=== PATIENT | male | born 1965 | race Hispanic/Latino ===

== ENCOUNTER 2018-06-08 19:44 | Inpatient (IN) | payer MEDICARE ==
[~2018-06-08] VITALS: Ht 170.2 cm; Wt 64.9 kg
[2018-06-08 20:39] LABS: BASOPHILS % (AUTO) 0.6 % (0.0-5.0); HEMATOCRIT 33.6 % (42-54); LYMPHOCYTES % (AUTO) 20.3 % (21.0-51.0); MEAN CORPUSCULAR HEMOGLOBIN 28.2 pg (27.0-33.0); MEAN CORPUSCULAR HGB CONC 33.8 g/dL (32.0-36.0); MEAN CORPUSCULAR VOLUME 83.2 fL (79-99); MONOCYTES % (AUTO) 8.3 % (3.0-13.0); NEUTROPHILS % (AUTO) 69.8 % (40.0-77.0); PLATELET COUNT (AUTO) 480 K/uL (130-400); RED BLOOD CELL COUNT(AUTO) 4.04 MIL/uL (4.50-6.20); WHITE BLOOD COUNT (AUTO) 12.6 K/uL (4.8-10.8)
[2018-06-08 20:55] LABS: CREATININE 1.5 mg/dL (0.5-1.5); POTASSIUM 3.8 mmol/L (3.5-5.1)
[2018-06-08 20:59] LABS: ALBUMIN 2.7 g/dL (3.5-5.0); BILIRUBIN,TOTAL 0.4 mg/dL (0.2-1.0); TOTAL PROTEIN, SERUM 8.6 g/dL (6.0-8.3)
[2018-06-09] MEDS: SODIUM CHLORIDE 0.9% 1000ML 1,000 ML IV SCH ×3 (00:04→20:39)
[2018-06-09] MEDS ORDERED: ZOSYN 3.375GM+NS 50ML 50 ML IV ONE (00:05)
[2018-06-09] MEDS ORDERED: SODIUM CHLORIDE 0.9% 50 ML IV ONE (00:05)
[2018-06-09] MEDS ORDERED: CLONIDINE HCL 0.1 MG TABLET ONE (00:06)
[2018-06-09] MEDS ORDERED: VANCOMYCIN 1GM+NS 250ML 250 ML IV SCH (00:15)
[2018-06-09] MEDS ORDERED: ACETAMINOPHEN 325 MG TAB PO PRN (00:15)
[2018-06-09] MEDS ORDERED: ONDANSETRON HCL MDV 20ML 2 MG/ML VIAL IV PRN (00:15)
[2018-06-09] MEDS ORDERED: MORPHINE SULFATE 2 MG/ML 1ML SYG IV PRN (00:15)
[2018-06-09] MEDS ORDERED: VANCOMYCIN 1GM+NS 250ML 250 ML IV ONE (00:27)
[2018-06-09] MEDS ORDERED: SODIUM CHLORIDE 0.9% 1000ML 1,000 ML IV ONE (02:31)
[2018-06-09 03:05] VITALS: BP 155/90
[2018-06-09] MEDS ORDERED: METF-446 PO (04:00)
[2018-06-09] MEDS ORDERED: ATOR20TA65 PO (04:00)
[2018-06-09] MEDS ORDERED: AMLO10TA6 PO (04:00)
[2018-06-09] MEDS ORDERED: INS7030 SQ (04:02)
[2018-06-09] MEDS ORDERED: HUM10VIA SQ (04:02)
[2018-06-09] MEDS ORDERED: DEXTROSE 50%-WATER 50 ML DISP.SYRIN IV PRN (05:45)
[2018-06-09] MEDS ORDERED: GLUCAGON 1MG KIT 1 MG ML IM PRN (05:45)
[2018-06-09] MEDS ORDERED: VANCOMYCIN PROTOCOL PER PHARMACY IV SCH (05:45)
[2018-06-09] MEDS: ZOSYN 3.375GM+NS 50ML 50 ML IV SCH ×3 (07:13→20:37)
[2018-06-09] MEDS: INSULIN HUMULIN R 100 UNIT/ML 3ML SQ SCH ×4 (07:21→20:37)
[2018-06-09] MEDS ORDERED: COMPOUND IV REFRIGERATED 1 EACH IVSOLN MISC PRN (07:45)
[2018-06-09 08:00] VITALS: BP 188/95
[2018-06-09 09:06] LABS: APPEARANCE,URINE Clear (CLEAR); BILIRUBIN,URINE Negative (NEGATIVE); COLOR,URINE Yellow (YELLOW); GLUCOSE, URINE (UA) >=1000 mg/dL (NEGATIVE); KETONES,URINE Negative (NEGATIVE); LEUKOCYTE ESTERASE ,URINE Negative (NEGATIVE); NITRATE,URINE Negative (NEGATIVE); OCCULT BLOOD,URINE Negative (NEGATIVE); PH,URINE 5.5 (5.0-8.0); PROTEIN,URINE Trace (NEGATIVE)
[2018-06-09 09:11] LABS: BACTERIA,URINE Rare /HPF (None Seen); RBC,URINE 0-1 /HPF (0-1); SQUAMOUS EPITHELIAL CELL,UR Rare /HPF (0-2); WBC,URINE 0-1 /HPF (0-1)
[2018-06-09] MEDS: VANCOMYCIN 750MG + NS 250 ML IV SCH ×4 (09:43→20:37)
[2018-06-09] MEDS: FAMOTIDINE 20MG TAB 20 MG TAB PO SCH ×2 (09:44→20:37)
[2018-06-09] MEDS: ENOXAPARIN SODIUM 30 MG/0.3 ML SQ SCH (09:44)
[2018-06-09] MEDS: AMLODIPINE BESYLATE 5 MG TAB PO SCH (09:44)
[2018-06-09] MEDS: ATORVASTATIN CALCIUM 20 MG TABLET PO SCH (09:44)
[2018-06-09 12:00] VITALS: BP 126/69
[2018-06-09 16:00] VITALS: BP 127/75
[2018-06-09] MEDS: INSULIN HUMULIN 70/30 100 UNIT/ML 3ML SQ SCH (16:30)
[2018-06-09] MEDS: METFORMIN HCL 500 MG TABLET PO SCH (16:58)
[2018-06-09 20:00] VITALS: BP 126/72
[2018-06-10] VITALS: BP 146/78
[2018-06-10 04:00] VITALS: BP 148/80
[2018-06-10] MEDS: ZOSYN 3.375GM+NS 50ML 50 ML IV SCH ×3 (04:54→20:51)
[2018-06-10] MEDS: INSULIN HUMULIN R 100 UNIT/ML 3ML SQ SCH ×4 (06:13→20:52)
[2018-06-10 07:30] VITALS: BP 152/74
[2018-06-10 08:14] LABS: HEMATOCRIT 30.4 % (42-54); MEAN CORPUSCULAR HEMOGLOBIN 27.8 pg (27.0-33.0); MEAN CORPUSCULAR HGB CONC 33.9 g/dL (32.0-36.0); PLATELET COUNT (AUTO) 399 K/uL (130-400); RED CELL DISTRIBUTION WIDTH 13.3 % (11.0-15.5); WHITE BLOOD COUNT (AUTO) 10.7 K/uL (4.8-10.8)
[2018-06-10] MEDS: ENOXAPARIN SODIUM 30 MG/0.3 ML SQ SCH (08:30)
[2018-06-10] MEDS: FAMOTIDINE 20MG TAB 20 MG TAB PO SCH ×2 (08:30→20:51)
[2018-06-10] MEDS: AMLODIPINE BESYLATE 5 MG TAB PO SCH (08:30)
[2018-06-10] MEDS: ATORVASTATIN CALCIUM 20 MG TABLET PO SCH (08:30)
[2018-06-10] MEDS: METFORMIN HCL 500 MG TABLET PO SCH ×2 (08:30→18:22)
[2018-06-10] MEDS: VANCOMYCIN 750MG + NS 250 ML IV SCH ×4 (08:31→20:51)
[2018-06-10 08:39] LABS: CREATININE 1.1 mg/dL (0.5-1.5); POTASSIUM 3.9 mmol/L (3.5-5.1)
[2018-06-10 11:00] VITALS: BP 133/76
[2018-06-10 16:00] VITALS: BP 124/74
[2018-06-10] MEDS: INSULIN HUMULIN 70/30 100 UNIT/ML 3ML SQ SCH (16:30)
[2018-06-10 20:00] VITALS: BP 140/73
[2018-06-11] VITALS: BP 127/71
[2018-06-11 04:05] VITALS: BP 128/71
[2018-06-11 05:07] LABS: HEMATOCRIT 30.5 % (42-54); MEAN CORPUSCULAR HGB CONC 33.8 g/dL (32.0-36.0); MEAN CORPUSCULAR VOLUME 82.9 fL (79-99); PLATELET COUNT (AUTO) 414 K/uL (130-400); RED BLOOD CELL COUNT(AUTO) 3.68 MIL/uL (4.50-6.20); RED CELL DISTRIBUTION WIDTH 13.4 % (11.0-15.5); WHITE BLOOD COUNT (AUTO) 8.5 K/uL (4.8-10.8)
[2018-06-11 05:17] LABS: CREATININE 1.1 mg/dL (0.5-1.5); POTASSIUM 3.5 mmol/L (3.5-5.1)
[2018-06-11] MEDS: ZOSYN 3.375GM+NS 50ML 50 ML IV SCH ×3 (05:27→20:15)
[2018-06-11] MEDS: INSULIN HUMULIN R 100 UNIT/ML 3ML SQ SCH ×4 (06:41→20:16)
[2018-06-11 07:24] VITALS: BP 120/70
[2018-06-11] MEDS: AMLODIPINE BESYLATE 5 MG TAB PO SCH (11:02)
[2018-06-11] MEDS: METFORMIN HCL 500 MG TABLET PO SCH ×2 (11:02→16:52)
[2018-06-11] MEDS: FAMOTIDINE 20MG TAB 20 MG TAB PO SCH ×2 (11:03→20:16)
[2018-06-11] MEDS: ATORVASTATIN CALCIUM 20 MG TABLET PO SCH (11:03)
[2018-06-11] MEDS: ENOXAPARIN SODIUM 30 MG/0.3 ML SQ SCH (11:03)
[2018-06-11] MEDS: VANCOMYCIN 750MG + NS 250 ML IV SCH ×4 (11:04→20:15)
[2018-06-11 11:50] VITALS: BP 183/88
[2018-06-11 15:44] VITALS: BP 125/72
[2018-06-11] MEDS: INSULIN HUMULIN 70/30 100 UNIT/ML 3ML SQ SCH (16:30)
[2018-06-11 20:00] VITALS: BP 150/82
[2018-06-12 00:05] VITALS: BP 131/53
[2018-06-12 04:36] VITALS: BP 139/71
[2018-06-12 04:49] LABS: BASOPHILS % (AUTO) 0.9 % (0.0-5.0); EOSINOPHILS % (AUTO) 2.9 % (0.0-8.0); LYMPHOCYTES % (AUTO) 27.9 % (21.0-51.0); MEAN CORPUSCULAR HEMOGLOBIN 27.6 pg (27.0-33.0); MEAN CORPUSCULAR HGB CONC 33.4 g/dL (32.0-36.0); MEAN CORPUSCULAR VOLUME 82.7 fL (79-99); MONOCYTES % (AUTO) 9.4 % (3.0-13.0); NEUTROPHILS % (AUTO) 58.9 % (40.0-77.0); NUCLEATED RED BLOOD CELLS 0.1 % (0.0-0.19); PLATELET COUNT (AUTO) 401 K/uL (130-400); RED BLOOD CELL COUNT(AUTO) 3.75 MIL/uL (4.50-6.20); RED CELL DISTRIBUTION WIDTH 13.4 % (11.0-15.5); WHITE BLOOD COUNT (AUTO) 9.3 K/uL (4.8-10.8)
[2018-06-12 05:07] LABS: CREATININE 1.5 mg/dL (0.5-1.5); POTASSIUM 3.6 mmol/L (3.5-5.1)
[2018-06-12] MEDS: ZOSYN 3.375GM+NS 50ML 50 ML IV SCH ×3 (05:52→20:35)
[2018-06-12] MEDS: INSULIN HUMULIN R 100 UNIT/ML 3ML SQ SCH ×4 (06:24→20:40)
[2018-06-12 07:30] VITALS: BP 153/81
[2018-06-12] MEDS: ENOXAPARIN SODIUM 30 MG/0.3 ML SQ SCH (09:22)
[2018-06-12] MEDS: ATORVASTATIN CALCIUM 20 MG TABLET PO SCH (09:22)
[2018-06-12] MEDS: AMLODIPINE BESYLATE 5 MG TAB PO SCH (09:22)
[2018-06-12] MEDS: FAMOTIDINE 20MG TAB 20 MG TAB PO SCH ×2 (09:22→20:34)
[2018-06-12] MEDS: METFORMIN HCL 500 MG TABLET PO SCH ×2 (09:22→17:08)
[2018-06-12] MEDS: VANCOMYCIN 750MG + NS 250 ML IV SCH ×4 (09:23→20:35)
[2018-06-12 11:00] VITALS: BP 146/85
[2018-06-12 16:00] VITALS: BP 143/94
[2018-06-12] MEDS: INSULIN HUMULIN 70/30 100 UNIT/ML 3ML SQ SCH (16:30)
[2018-06-12 19:00] VITALS: BP 142/82
[2018-06-13] VITALS (12 sets, daily range): BP systolic 123–166; BP diastolic 75–93
[2018-06-13] MEDS: ZOSYN 3.375GM+NS 50ML 50 ML IV SCH ×3 (04:41→21:04)
[2018-06-13] MEDS: INSULIN HUMULIN R 100 UNIT/ML 3ML SQ SCH ×4 (06:12→21:08)
[2018-06-13] MEDS: METFORMIN HCL 500 MG TABLET PO SCH ×2 (08:00→17:37)
[2018-06-13] MEDS ORDERED: BUPIVACAINE/PF 0.5% 30ML VIAL ONE (08:51)
[2018-06-13] MEDS ORDERED: LIDOCAINE HCL 1% 20 ML VIAL ONE (08:51)
[2018-06-13] MEDS: FAMOTIDINE 20MG TAB 20 MG TAB PO SCH ×2 (09:00→21:04)
[2018-06-13] MEDS: ENOXAPARIN SODIUM 30 MG/0.3 ML SQ SCH (09:00)
[2018-06-13] MEDS ORDERED: FENTANYL CITRATE PF 50 MCG/1 ML 2ML VIAL ONE (09:23)
[2018-06-13] MEDS ORDERED: MIDAZOLAM HCL 1 MG/ML 2ML VIAL ONE (09:23)
[2018-06-13] MEDS: AMLODIPINE BESYLATE 5 MG TAB PO SCH (14:50)
[2018-06-13] MEDS: ATORVASTATIN CALCIUM 20 MG TABLET PO SCH (14:50)
[2018-06-13] MEDS: INSULIN HUMULIN 70/30 100 UNIT/ML 3ML SQ SCH (16:30)
[2018-06-14] VITALS: BP 132/68
[2018-06-14 04:00] VITALS: BP 132/77
[2018-06-14] MEDS: ZOSYN 3.375GM+NS 50ML 50 ML IV SCH ×3 (04:47→20:13)
[2018-06-14 06:12] LABS: HEMATOCRIT 29.6 % (42-54); MEAN CORPUSCULAR HEMOGLOBIN 27.4 pg (27.0-33.0); MEAN CORPUSCULAR HGB CONC 33.2 g/dL (32.0-36.0); MEAN CORPUSCULAR VOLUME 82.4 fL (79-99); PLATELET COUNT (AUTO) 376 K/uL (130-400); RED BLOOD CELL COUNT(AUTO) 3.59 MIL/uL (4.50-6.20); RED CELL DISTRIBUTION WIDTH 13.4 % (11.0-15.5); WHITE BLOOD COUNT (AUTO) 9.9 K/uL (4.8-10.8)
[2018-06-14] MEDS: INSULIN HUMULIN R 100 UNIT/ML 3ML SQ SCH ×4 (06:18→20:55)
[2018-06-14 06:26] LABS: CREATININE 1.7 mg/dL (0.5-1.5); POTASSIUM 3.2 mmol/L (3.5-5.1)
[2018-06-14] MEDS ORDERED: LIDOCAINE HCL-MPF 1% 2ML VIAL IVP PRN (06:45)
[2018-06-14] MEDS ORDERED: POTASSIUM CHLORIDE 20 MEQ ERTAB PO PRN (06:45)
[2018-06-14] MEDS ORDERED: POTASSIUM CHLORIDE 10% ELIXIR 20 MEQ/15 ML UDCUP PO PRN (06:45)
[2018-06-14] MEDS ORDERED: POTASSIUM CHLORIDE 20MEQ/100ML 100 ML IV PRN (06:45)
[2018-06-14] MEDS ORDERED: POTASSIUM CHLORIDE 20 MEQ ERTAB PO ONE (06:47)
[2018-06-14 08:00] VITALS: BP 124/70
[2018-06-14] MEDS: AMLODIPINE BESYLATE 5 MG TAB PO SCH (08:32)
[2018-06-14] MEDS: FAMOTIDINE 20MG TAB 20 MG TAB PO SCH ×2 (08:32→20:12)
[2018-06-14] MEDS: ATORVASTATIN CALCIUM 20 MG TABLET PO SCH (08:32)
[2018-06-14] MEDS: METFORMIN HCL 500 MG TABLET PO SCH ×2 (08:32→16:57)
[2018-06-14] MEDS: ENOXAPARIN SODIUM 30 MG/0.3 ML SQ SCH (08:32)
[2018-06-14 12:00] VITALS: BP 149/88
[2018-06-14 16:00] VITALS: BP 124/71
[2018-06-14] MEDS: INSULIN HUMULIN 70/30 100 UNIT/ML 3ML SQ SCH (16:07)
[2018-06-14 19:00] VITALS: BP 129/70
[2018-06-14] MEDS: METOPROLOL TARTRATE 25 MG TAB PO SCH (20:12)
[2018-06-14] MEDS ORDERED: VANCOMYCIN 750MG + NS 250 ML IV SCH ×2 (20:30)
[2018-06-14] MEDS ORDERED: VANCOMYCIN 1GM+NS 250ML 250 ML IV SCH (21:00)
[2018-06-15] VITALS (7 sets, daily range): BP systolic 103–157; BP diastolic 59–86
[2018-06-15] MEDS: ZOSYN 3.375GM+NS 50ML 50 ML IV SCH ×3 (04:59→20:06)
[2018-06-15] MEDS: INSULIN HUMULIN R 100 UNIT/ML 3ML SQ SCH ×3 (05:58→21:00)
[2018-06-15 06:31] LABS: POTASSIUM 4.1 mmol/L (3.5-5.1)
[2018-06-15 06:47] LABS: MEAN CORPUSCULAR HEMOGLOBIN 27.1 pg (27.0-33.0); MEAN CORPUSCULAR HGB CONC 32.9 g/dL (32.0-36.0); MEAN CORPUSCULAR VOLUME 82.6 fL (79-99); PLATELET COUNT (AUTO) 344 K/uL (130-400); RED BLOOD CELL COUNT(AUTO) 3.88 MIL/uL (4.50-6.20); RED CELL DISTRIBUTION WIDTH 13.3 % (11.0-15.5); WHITE BLOOD COUNT (AUTO) 9.6 K/uL (4.8-10.8)
[2018-06-15] MEDS: METFORMIN HCL 500 MG TABLET PO SCH ×2 (07:58→17:00)
[2018-06-15] MEDS ORDERED: VANCOMYCIN 750MG + NS 250 ML IV SCH ×2 (09:00)
[2018-06-15] MEDS: ATORVASTATIN CALCIUM 20 MG TABLET PO SCH (09:09)
[2018-06-15] MEDS: AMLODIPINE BESYLATE 5 MG TAB PO SCH (09:10)
[2018-06-15] MEDS: METOPROLOL TARTRATE 25 MG TAB PO SCH ×2 (09:10→20:06)
[2018-06-15] MEDS: FAMOTIDINE 20MG TAB 20 MG TAB PO SCH ×2 (09:10→20:06)
[2018-06-15] MEDS: ENOXAPARIN SODIUM 30 MG/0.3 ML SQ SCH (09:11)
[2018-06-15] MEDS: INSULIN HUMULIN 70/30 100 UNIT/ML 3ML SQ SCH (16:30)
[2018-06-16 04:00] VITALS: BP 114/60
[2018-06-16] MEDS: VANCOMYCIN 500MG+NS 100ML 100 ML IV SCH ×2 (04:52→16:54)
[2018-06-16] MEDS: ZOSYN 3.375GM+NS 50ML 50 ML IV SCH ×3 (04:52→19:35)
[2018-06-16] MEDS: INSULIN HUMULIN R 100 UNIT/ML 3ML SQ SCH ×4 (06:20→20:18)
[2018-06-16 07:30] VITALS: BP 132/71
[2018-06-16] MEDS: FAMOTIDINE 20MG TAB 20 MG TAB PO SCH ×2 (08:23→19:35)
[2018-06-16] MEDS: METFORMIN HCL 500 MG TABLET PO SCH ×2 (08:23→16:54)
[2018-06-16] MEDS: AMLODIPINE BESYLATE 5 MG TAB PO SCH (08:24)
[2018-06-16] MEDS: ENOXAPARIN SODIUM 30 MG/0.3 ML SQ SCH (08:24)
[2018-06-16] MEDS: METOPROLOL TARTRATE 25 MG TAB PO SCH ×2 (08:25→19:35)
[2018-06-16 11:00] VITALS: BP 145/77
[2018-06-16 16:00] VITALS: BP 101/65
[2018-06-16] MEDS: INSULIN HUMULIN 70/30 100 UNIT/ML 3ML SQ SCH (16:30)
[2018-06-16 19:12] VITALS: BP 132/71
[2018-06-16] MEDS: ATORVASTATIN CALCIUM 20 MG TABLET PO SCH (19:35)
[2018-06-16] MEDS ORDERED: INSULIN HUMULIN R 100 UNIT/ML 3ML IV SCH (22:45)
[2018-06-16 23:33] VITALS: BP 113/65
[2018-06-17 03:12] VITALS: BP 116/66
[2018-06-17] MEDS: VANCOMYCIN 500MG+NS 100ML 100 ML IV SCH ×2 (04:31→18:22)
[2018-06-17] MEDS: ZOSYN 3.375GM+NS 50ML 50 ML IV SCH ×3 (04:31→20:20)
[2018-06-17] MEDS: INSULIN HUMULIN R 100 UNIT/ML 3ML SQ SCH ×4 (05:48→20:24)
[2018-06-17 06:23] LABS: BASOPHILS % (AUTO) 1.5 % (0.0-5.0); EOSINOPHILS % (AUTO) 5.5 % (0.0-8.0); HEMATOCRIT 29.5 % (42-54); LYMPHOCYTES % (AUTO) 29.2 % (21.0-51.0); MEAN CORPUSCULAR HEMOGLOBIN 28.1 pg (27.0-33.0); MEAN CORPUSCULAR HGB CONC 33.9 g/dL (32.0-36.0); MEAN CORPUSCULAR VOLUME 82.8 fL (79-99); NEUTROPHILS % (AUTO) 54.8 % (40.0-77.0); PLATELET COUNT (AUTO) 426 K/uL (130-400); RED BLOOD CELL COUNT(AUTO) 3.57 MIL/uL (4.50-6.20); RED CELL DISTRIBUTION WIDTH 13.4 % (11.0-15.5)
[2018-06-17 06:31] LABS: CREATININE 1.9 mg/dL (0.5-1.5); POTASSIUM 3.8 mmol/L (3.5-5.1)
[2018-06-17 07:30] VITALS: BP 108/63
[2018-06-17] MEDS: METOPROLOL TARTRATE 25 MG TAB PO SCH ×2 (09:13→20:19)
[2018-06-17] MEDS: METFORMIN HCL 500 MG TABLET PO SCH ×2 (09:13→17:25)
[2018-06-17] MEDS: AMLODIPINE BESYLATE 5 MG TAB PO SCH (09:13)
[2018-06-17] MEDS: FAMOTIDINE 20MG TAB 20 MG TAB PO SCH ×2 (09:13→20:20)
[2018-06-17] MEDS: ENOXAPARIN SODIUM 30 MG/0.3 ML SQ SCH (09:14)
[2018-06-17 11:00] VITALS: BP 136/83
[2018-06-17 16:00] VITALS: BP 120/62
[2018-06-17] MEDS: INSULIN HUMULIN 70/30 100 UNIT/ML 3ML SQ SCH (16:30)
[2018-06-17 20:00] VITALS: BP 131/67
[2018-06-17] MEDS: ATORVASTATIN CALCIUM 20 MG TABLET PO SCH (20:20)
[2018-06-17 23:51] VITALS: BP 123/64
[2018-06-18 04:00] VITALS: BP 130/68
[2018-06-18] MEDS: VANCOMYCIN 500MG+NS 100ML 100 ML IV SCH (05:19)
[2018-06-18] MEDS: ZOSYN 3.375GM+NS 50ML 50 ML IV SCH ×2 (05:19→13:19)
[2018-06-18] MEDS: INSULIN HUMULIN R 100 UNIT/ML 3ML SQ SCH ×3 (06:53→16:30)
[2018-06-18 08:15] VITALS: BP 144/79
[2018-06-18] MEDS: AMLODIPINE BESYLATE 5 MG TAB PO SCH (08:16)
[2018-06-18] MEDS: METOPROLOL TARTRATE 25 MG TAB PO SCH (08:18)
[2018-06-18] MEDS: METFORMIN HCL 500 MG TABLET PO SCH ×2 (08:18→16:48)
[2018-06-18] MEDS: FAMOTIDINE 20MG TAB 20 MG TAB PO SCH (08:18)
[2018-06-18] MEDS: ENOXAPARIN SODIUM 30 MG/0.3 ML SQ SCH (08:24)
[2018-06-18 12:05] VITALS: BP 140/72
[2018-06-18 16:00] VITALS: BP 130/69
[2018-06-18] MEDS: INSULIN HUMULIN 70/30 100 UNIT/ML 3ML SQ SCH (16:30)
== END 2018-06-18 18:40 | DRG 617 ==
LOC: EDH 19:44 → EDHIP 22:35 → OBSVTOIN 22:35 → 3DH 06-09 02:21
PROVIDERS: ADMIT Internal Medicine; ATTEND Internal Medicine
PROC: 3E02340 Introduction of Influenza Vaccine into Muscle, Percutaneous Approach (ICD-10-PCS; 2018-06-09)
PROC: 0QBR0ZZ Excision of Left Toe Phalanx, Open Approach (ICD-10-PCS; 2018-06-10)
PROC: 0Y6N0Z9 Detachment at Left Foot, Partial 1st Ray, Open Approach (ICD-10-PCS; principal; 2018-06-13 09:22)
DX: E11.69 Type 2 diabetes mellitus with other specified complication (principal); E87.1 Hypo-osmolality and hyponatremia; M86.8X7 Other osteomyelitis, ankle and foot; L03.115 Cellulitis of right lower limb; S90.425A Blister (nonthermal), left lesser toe(s), initial encounter; L97.529 Non-pressure chronic ulcer of other part of left foot with unspecified severity; E11.621 Type 2 diabetes mellitus with foot ulcer; E87.6 Hypokalemia; E11.65 Type 2 diabetes mellitus with hyperglycemia; E78.5 Hyperlipidemia, unspecified; I10 Essential (primary) hypertension; L03.032 Cellulitis of left toe; B95.62 Methicillin resistant Staphylococcus aureus infection as the cause of diseases classified elsewhere; B95.2 Enterococcus as the cause of diseases classified elsewhere; B95.61 Methicillin susceptible Staphylococcus aureus infection as the cause of diseases classified elsewhere; B96.4 Proteus (mirabilis) (morganii) as the cause of diseases classified elsewhere; X58.XXXA Exposure to other specified factors, initial encounter; Y93.89 Activity, other specified; Y92.89 Other specified places as the place of occurrence of the external cause; Y99.8 Other external cause status; Z79.4 Long term (current) use of insulin
CPT/HCPCS: 36415; 71045; 73630; 73700; 73718; 80048; 80053; 80202; 81001; 82948; 84484; 85025; 85027; 87040; 87070; 87076; 87077; 87186; 87205; 88305; 88311; 93005; 93923; 93925; 97039; G0008; G0378; J1650; J1815; J2250; J2543; J3010; J3370; J3490; J7030; Q2035

== ENCOUNTER 2019-11-23 20:40 | Inpatient (IN) | payer MEDICARE ==
[~2019-11-23] VITALS: Ht 165.1 cm; Wt 72.6 kg
[~2019-11-23 20:40] MED LIST: AMLO-258 PO; ATOR20TA65 PO; HUM10VIA SQ; INS7030 SQ; METF-446 PO
[2019-11-23 21:23] LABS: BASOPHILS % (AUTO) 0.4 % (0.0-5.0); EOSINOPHILS % (AUTO) 0.2 % (0.0-8.0); HEMATOCRIT 27.3 % (42-54); LYMPHOCYTES % (AUTO) 3.1 % (21.0-51.0); MEAN CORPUSCULAR HEMOGLOBIN 26.7 pg (27.0-33.0); MEAN CORPUSCULAR HGB CONC 34.1 g/dL (32.0-36.0); MEAN CORPUSCULAR VOLUME 78.4 fL (79-99); MONOCYTES % (AUTO) 2.7 % (3.0-13.0); NEUTROPHILS % (AUTO) 87.4 % (40.0-77.0); PLATELET COUNT (AUTO) 375 K/uL (130-400); RED BLOOD CELL COUNT(AUTO) 3.48 MIL/uL (4.50-6.20); RED CELL DISTRIBUTION WIDTH 12.5 % (11.0-15.5); WHITE BLOOD COUNT (AUTO) 26.5 K/uL (4.8-10.8)
[2019-11-23 21:33] LABS: CREATININE 2.6 mg/dL (0.5-1.5); POTASSIUM 3.1 mmol/L (3.5-5.1)
[2019-11-23 22:00] LABS: BAND NEUTROPHILS % (MANUAL) 19 % (0-2); LYMPHOCYTES % (MANUAL) 2 % (22-44); MAN.DIFF COMMENT-IMPRESSION MANUAL DIFFERENTIAL; MONOCYTES % (MANUAL) 3 % (2-9); SEGMENTED NEUTROPHILS % 76 % (40-70)
[2019-11-23] MEDS ORDERED: VANCOMYCIN 1GM+NS 250ML 250 ML IV ONE (22:34)
[2019-11-23] MEDS ORDERED: ZOSYN 3.375GM+NS 50ML 50 ML IV ONE (22:34)
[2019-11-23 22:57] LABS: APPEARANCE,URINE Cloudy (CLEAR); BILIRUBIN,URINE Small (NEGATIVE); COLOR,URINE Dark Yellow (YELLOW); GLUCOSE, URINE (UA) TRACE mg/dL (NEGATIVE); KETONES,URINE Trace mg/dL (NEGATIVE); LEUKOCYTE ESTERASE ,URINE Negative (NEGATIVE); NITRATE,URINE Negative (NEGATIVE); OCCULT BLOOD,URINE Negative (NEGATIVE); PROTEIN,URINE POS 2+ mg/dL (NEGATIVE)
[2019-11-23] MEDS ORDERED: ACETAMINOPHEN 325 MG TAB PO PRN (23:15)
[2019-11-23] MEDS ORDERED: GLUCAGON 1MG KIT 1 MG ML IM PRN (23:15)
[2019-11-23] MEDS ORDERED: ONDANSETRON HCL 4 MG/2 ML VIAL IV PRN (23:15)
[2019-11-23] MEDS ORDERED: DEXTROSE 50%-WATER 50 ML DISP.SYRIN IV PRN (23:15)
[2019-11-23 23:21] LABS: AMORPHOUS SEDIMENT,UR Few /LPF (None Seen); BACTERIA,URINE None Seen /HPF (None Seen); RBC,URINE 0-1 /HPF (0-1); SQUAMOUS EPITHELIAL CELL,UR Rare /HPF (0-2); WBC,URINE 0-1 /HPF (0-1)
[2019-11-23] MEDS ORDERED: SODIUM CHLORIDE 0.9% 1000ML 2,000 ML IV ONE (23:23)
[2019-11-23] MEDS: ZOSYN 3.375GM+NS 50ML 50 ML IV SCH (23:30)
[2019-11-23] MEDS ORDERED: VANCOMYCIN PROTOCOL PER PHARMACY IV SCH (23:30)
[2019-11-23] MEDS ORDERED: KETOROLAC TROMETHAMINE 15MG/ML IV PRN (23:30)
[2019-11-24] MEDS ORDERED: PHARMACY COMMUNICATION MISC SCH ×2 (01:00→08:15)
[2019-11-24] MEDS: LACTATED RINGERS 1000ML 1,000 ML IV SCH ×2 (03:30→11:05)
[2019-11-24 04:00] VITALS: BP 152/80
[2019-11-24 04:11] LABS: BASOPHILS % (AUTO) 0.3 % (0.0-5.0); HEMATOCRIT 24.5 % (42-54); LYMPHOCYTES % (AUTO) 4.5 % (21.0-51.0); MEAN CORPUSCULAR HEMOGLOBIN 26.8 pg (27.0-33.0); MEAN CORPUSCULAR HGB CONC 33.9 g/dL (32.0-36.0); MONOCYTES % (AUTO) 5.6 % (3.0-13.0); PLATELET COUNT (AUTO) 355 K/uL (130-400); RED CELL DISTRIBUTION WIDTH 12.5 % (11.0-15.5); WHITE BLOOD COUNT (AUTO) 28.4 K/uL (4.8-10.8)
[2019-11-24 04:17] LABS: ALBUMIN 1.7 g/dL (3.5-5.0); BILIRUBIN,TOTAL 0.7 mg/dL (0.2-1.0); CREATININE 2.3 mg/dL (0.5-1.5); MAGNESIUM 1.6 mg/dL (1.80-2.40); POTASSIUM 3.6 mmol/L (3.5-5.1); TOTAL PROTEIN, SERUM 6.1 g/dL (6.0-8.3)
[2019-11-24 04:18] LABS: INR 1.12 (0.85-1.15); PARTIAL THROMBOPLASTIN TIME 34.5 SEC (26.3-35.5)
--- NOTE | 2019-11-24 04:47 | NUR ---
zoysn administered in er at 2100 hours.
--- NOTE | 2019-11-24 07:00 | NUR ---
[facility] down assessment and data base written in correct papers. Please refer to paper charting.
[2019-11-24] MEDS: ZOSYN 3.375GM+NS 50ML 50 ML IV SCH (07:18)
[2019-11-24] MEDS: INSULIN HUMULIN R 100 UNIT/ML 3ML SQ SCH ×4 (07:50→21:00)
[2019-11-24 08:01] VITALS: BP 160/76
--- NOTE | 2019-11-24 08:08 | NUR ---
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 PENDING DR HARPAL WONG TO MAKE AWARRE
[2019-11-24] MEDS: FAMOTIDINE/PF 20 MG/2 ML VIAL IV SCH ×2 (09:04→22:35)
[2019-11-24] MEDS ORDERED: MAGNESIUM 2GM PREMIX 50ML 50 ML IV ONE (09:53)
[2019-11-24 11:29] VITALS: BP 115/61
[2019-11-24 12:10] LABS: AMPHET/METH SCREEN,URINE NEGATIVE (NEGATIVE); BARBITURATE SCREEN, URINE NEGATIVE (NEGATIVE); BENZODIAZEPINES SCREEN,URINE NEGATIVE (NEGATIVE); CANNABINOID SCREEN,URINE NEGATIVE (NEGATIVE); COCAINE SCREEN,URINE NEGATIVE (NEGATIVE); CREATININE,URINE RANDOM 272 mg/dL (30-135); OPIATE SCREEN,URINE NEGATIVE (NEGATIVE); PHENCYCLIDINE SCREEN,URINE NEGATIVE (NEGATIVE); PROTEIN,URINE RANDOM 144.4 mg/dL (0-11.9)
[2019-11-24] MEDS ORDERED: COMPOUND IV REFRIGERATED 1 EACH IVSOLN MISC PRN (13:15)
[2019-11-24] MEDS ORDERED: VANCOMYCIN 1.5 GM in SODIUM CHLORIDE 0.9% 250 ML IV ONE (14:00)
--- NOTE | 2019-11-24 14:13 | NUR ---
CM NOTE/IA MEET WITH PATIENT IN ROOM. PER PATIENT, LIVES PRIMARY ALONE SINCE SPOUSE AND HIM ARE BUT SPOUSE STAYS WITH HIM FROM TIME TO TIME, NO HOME HEALTH OR PROVIDER SERVICES IN USE, INDEPENDENT WITH ADLS, BROTHER DRIVES, NO DME IN USE AND FEELS SAFE TO RETURN HOME. Addendum: 11/25/19 at 1415 by JEANINE VALVERDE RN CM Amended: Links added.
[2019-11-24] MEDS: CEFEPIME HCL 1 GM VIAL IVP SCH (14:53)
[2019-11-24] MEDS: ASPIRIN 81MG TAB.CHEW PO SCH (16:19)
[2019-11-24 16:22] VITALS: BP 160/76
[2019-11-24 20:00] VITALS: BP 132/78
[2019-11-24] MEDS: ATORVASTATIN CALCIUM 40 MG TABLET PO SCH (22:35)
[2019-11-24 23:39] VITALS: BP 158/82
[2019-11-25] VITALS (25 sets, daily range): BP systolic 120–199; BP diastolic 48–96
[2019-11-25] MEDS: CEFEPIME HCL 1 GM VIAL IVP SCH ×2 (00:25→12:26)
[2019-11-25] MEDS: LACTATED RINGERS 1000ML 1,000 ML IV SCH ×2 (00:29→14:15)
[2019-11-25 05:01] LABS: CREATININE 1.5 mg/dL (0.5-1.5); PHOSPHORUS 2.8 mg/dL (2.5-4.9)
[2019-11-25 05:08] LABS: HEMATOCRIT 23.7 % (42-54); MEAN CORPUSCULAR HEMOGLOBIN 26.8 pg (27.0-33.0); MEAN CORPUSCULAR HGB CONC 34.2 g/dL (32.0-36.0); MEAN CORPUSCULAR VOLUME 78.5 fL (79-99); PLATELET COUNT (AUTO) 386 K/uL (130-400); RED BLOOD CELL COUNT(AUTO) 3.02 MIL/uL (4.50-6.20); RED CELL DISTRIBUTION WIDTH 12.4 % (11.0-15.5); WHITE BLOOD COUNT (AUTO) 20.9 K/uL (4.8-10.8)
[2019-11-25 05:09] LABS: % IRON SATURATION 8.1 % (30-44)
--- NOTE | 2019-11-25 05:34 | NUR ---
potassium: 3.0 Reported to on-call hospitalist with an order to give Potassium 20 MEQ IV x 1 dose only.
[2019-11-25] MEDS ORDERED: LIDOCAINE HCL 1% 20 ML VIAL IV SCH (05:45)
[2019-11-25] MEDS ORDERED: POTASSIUM CHLORIDE 20 MEQ/100 ML BAG IV SCH (05:45)
[2019-11-25] MEDS: INSULIN HUMULIN R 100 UNIT/ML 3ML SQ SCH ×4 (05:51→21:00)
[2019-11-25] MEDS: POTASSIUM CHLORIDE 10MEQ/100ML 100 ML IV SCH ×2 (06:19→17:05)
[2019-11-25] MEDS: LIDOCAINE HCL-MPF 1% 2ML VIAL IV SCH ×2 (06:20→17:04)
[2019-11-25 06:26] LABS: BAND NEUTROPHILS % (MANUAL) 15 % (0-2); EOSINOPHILS % (MANUAL) 3 % (1-6); LYMPHOCYTES % (MANUAL) 10 % (22-44); MAN.DIFF COMMENT-IMPRESSION MANUAL DIFFERENTIAL; METAMYELOCYTES % 1 % (0-0); MONOCYTES % (MANUAL) 5 % (2-9); REACTIVE LYMPHOCYTES 2 % (0-0); SEGMENTED NEUTROPHILS % 64 % (40-70)
[2019-11-25 06:27] LABS: PLATELET MORPHOLOGY COMMENT ADEQUATE
--- NOTE | 2019-11-25 08:20 | NUR ---
TO SURGERY PATIENT HAS BEEN TRANSFERRED TO OR HOLDING AREA IN STABLE CONDITION. DR. DOMINGO WAS IN TO SEE PATIENT AND DISCUSS SURGERY OPTIONS.
[2019-11-25] MEDS: ASPIRIN 81MG TAB.CHEW PO SCH (08:34)
[2019-11-25] MEDS: FAMOTIDINE/PF 20 MG/2 ML VIAL IV SCH ×2 (08:34→21:01)
[2019-11-25] MEDS ORDERED: MIDAZOLAM HCL 1 MG/ML 2ML VIAL ONE (08:36)
[2019-11-25] MEDS ORDERED: KETAMINE 50MG/ML SYRINGE 50 MG/ML DISP.SYRIN IV ONE ×2 (08:37→08:49)
[2019-11-25] MEDS ORDERED: PROPOFOL 1000 MG/100 ML 0 ML IV ONE (08:46)
[2019-11-25] MEDS ORDERED: PROPOFOL 1000 MG/100 ML 100 ML IV ONE (08:48)
[2019-11-25] MEDS ORDERED: PROPOFOL 10 MG/ML 20ML VIAL IV ONE (09:01)
[2019-11-25] MEDS ORDERED: COMPOUND IV MISC 1 EACH IVSOLN MISC PRN (09:45)
--- NOTE | 2019-11-25 10:52 | NUR ---
1042 BPCI Letter given to patient.
--- NOTE | 2019-11-25 11:15 | NUR ---
POST SURGERY RETURNED TO ROOM FROM PACU VIA HOSPITAL BED IN STABLE CONDITION. DRESSING TO LEFT AKA IS DRY AND INTACT. HE IS AWAKE AND ALERT WITH NO C/O PAIN. POST OP V/S INITIATED. REORIENTED TO ROOM AND USE OF CALL LIGHT. WILL CONTINUE TO MONITOR.
[2019-11-25] MEDS: IRON SUCROSE COMPLEX 100 MG in SODIUM CHLORIDE 0.9% 50 ML IV SCH (12:01)
[2019-11-25] MEDS ORDERED: VANCOMYCIN 1GM+NS 250ML 250 ML IV SCH (14:00)
[2019-11-25] MEDS ORDERED: AMLODIPINE BESYLATE 5 MG TAB PO SCH (17:30)
[2019-11-25] MEDS ORDERED: HYDRALAZINE HCL 20 MG/ML VIAL IM PRN (18:30)
--- NOTE | 2019-11-25 19:45 | NUR ---
WOUND LEFT STUMP DRESSING LEFT STUMP OFF, PATIENT STATES DOESNT KNOW how it came off, wound with dehisence , observe 5 maikol off, minimal sero sanguinous drainage, called dr. shrestha informed of wound dehisence with oreders, cleansed wound with saline dab dry, apply x5 steri strips over open wound, apply xerform, 4x4, kerlix roll with elastoblast secured with hypafix to skin as ordered by dr. shrestha
[2019-11-25] MEDS: ATORVASTATIN CALCIUM 40 MG TABLET PO SCH (21:01)
[2019-11-25] MEDS ORDERED: MORPHINE SULFATE 4 MG/1ML SYG ONE (21:34)
[2019-11-25] MEDS: MORPHINE SULFATE 4 MG/1ML SYG IVP PRN (22:06)
[2019-11-26] VITALS (7 sets, daily range): BP systolic 140–191; BP diastolic 74–92
[2019-11-26] MEDS: CEFEPIME HCL 1 GM VIAL IVP SCH (00:35)
[2019-11-26] MEDS: VANCOMYCIN 0.75 GM in SODIUM CHLORIDE 0.9% 250 ML IV SCH ×2 (00:36→15:23)
[2019-11-26] MEDS: LACTATED RINGERS 1000ML 1,000 ML IV SCH ×2 (04:03→20:44)
[2019-11-26 04:18] LABS: HEMATOCRIT 24.5 % (42-54); MEAN CORPUSCULAR HEMOGLOBIN 26.3 pg (27.0-33.0); MEAN CORPUSCULAR HGB CONC 33.9 g/dL (32.0-36.0); MEAN CORPUSCULAR VOLUME 77.8 fL (79-99); RED BLOOD CELL COUNT(AUTO) 3.15 MIL/uL (4.50-6.20); RED CELL DISTRIBUTION WIDTH 12.5 % (11.0-15.5)
[2019-11-26 04:39] LABS: POTASSIUM 3.3 mmol/L (3.5-5.1)
[2019-11-26] MEDS: INSULIN HUMULIN R 100 UNIT/ML 3ML SQ SCH ×4 (05:26→20:44)
[2019-11-26] MEDS: ASPIRIN 81MG TAB.CHEW PO SCH (09:34)
[2019-11-26] MEDS: FAMOTIDINE/PF 20 MG/2 ML VIAL IV SCH ×2 (09:34→20:44)
[2019-11-26] MEDS: AMLODIPINE BESYLATE 5 MG TAB PO SCH (09:35)
[2019-11-26] MEDS: IRON SUCROSE COMPLEX 100 MG in SODIUM CHLORIDE 0.9% 50 ML IV SCH (10:59)
[2019-11-26] MEDS: LEVOFLOXACIN 750 MG TABLET PO SCH (15:23)
--- NOTE | 2019-11-26 18:25 | NUR ---
DISCHARGE PLANNING TO [facility]- SABINA SCREENING PENDING SPOKE TO PATIENT ABOUT PLACEMENT YESTERDAY AFTER SURGERY- DECIDED ON [facility]. ADVISED SON THALIA BOOKER JR THIS AM [phone] AND HE ALSO AGREED WITH THIS PLACEMENT. PATIENT WILL ALSO NEED ORDER FOR WHEELCHAIR PRIOR TO DISCHARGE. CM TO FOLLOW UP SPOKE WITH ANTONELLA FOR [facility] AND SHE STATES THAT SHE WILL BE IN EARLY FRIDAY TO SWAB PATIENT. ADVISED HER THAT I DID NOT HAVE PT NOTES YET BECUSE THERE WAS A SMALL DEHISCENC EOF THE WOUND AND WE WILL WAIT FOR SURGEON FOR PT ORDERS. WILL SEND CM REFERRAL - FACE SHEET AND MD ORDER TO START PROCESS, REST OF PKT PENDING, Addendum: 11/26/19 at 1831 by FORREST SHIELDS RN CM Amended: Links added.
--- NOTE | 2019-11-26 18:32 | NUR ---
SPOKE TO PATIENT ABOUT PLACEMENT YESTERDAY AFTER SURGERY- DECIDED ON [facility]. ADVISED SON ANNA DEVRIES * THIS AM [phone] AND HE ALSO AGREED WITH THIS PLACEMENT.
[2019-11-26] MEDS: ATORVASTATIN CALCIUM 40 MG TABLET PO SCH (20:44)
[2019-11-26] MEDS: MORPHINE SULFATE 4 MG/1ML SYG IVP PRN (21:03)
[2019-11-26] MEDS ORDERED: LIDOCAINE HCL-MPF 1% 2ML VIAL IV PRN (21:15)
[2019-11-26] MEDS ORDERED: HYDRALAZINE HCL 20 MG/ML VIAL IV PRN (23:30)
[2019-11-27] MEDS: VANCOMYCIN 0.75 GM in SODIUM CHLORIDE 0.9% 250 ML IV SCH (01:24)
[2019-11-27 04:00] VITALS: BP 153/78
[2019-11-27 05:49] LABS: CREATININE 0.9 mg/dL (0.5-1.5); MAGNESIUM 1.2 mg/dL (1.80-2.40)
[2019-11-27 06:04] LABS: POTASSIUM 2.8 mmol/L (3.5-5.1)
[2019-11-27] MEDS: LACTATED RINGERS 1000ML 1,000 ML IV SCH ×2 (06:16→16:39)
[2019-11-27] MEDS: INSULIN HUMULIN R 100 UNIT/ML 3ML SQ SCH ×4 (06:16→20:55)
[2019-11-27] MEDS: MAGNESIUM 2GM PREMIX 50ML 50 ML IV PRN ×2 (06:22→10:54)
[2019-11-27] MEDS ORDERED: POTASSIUM CHLORIDE 20 MEQ ERTAB PO SCH ×2 (07:15→09:00)
[2019-11-27] MEDS ORDERED: POTASSIUM CHLORIDE 20MEQ/100ML 100 ML IV PRN (07:15)
[2019-11-27] MEDS ORDERED: POTASSIUM CHLORIDE 10% ELIXIR 20 MEQ/15 ML UDCUP PO PRN (07:15)
[2019-11-27] MEDS ORDERED: LIDOCAINE HCL-MPF 1% 2ML VIAL IV PRN (07:15)
[2019-11-27] MEDS ORDERED: POTASSIUM CHLORIDE 20 MEQ ERTAB PO ONE (07:17)
[2019-11-27 08:00] VITALS: BP 188/92
[2019-11-27] MEDS: ASPIRIN 81MG TAB.CHEW PO SCH (08:53)
[2019-11-27] MEDS: HYDRALAZINE HCL 25 MG TABLET PO SCH ×2 (08:53→20:43)
[2019-11-27] MEDS: AMLODIPINE BESYLATE 5 MG TAB PO SCH (08:55)
[2019-11-27] MEDS: FAMOTIDINE/PF 20 MG/2 ML VIAL IV SCH ×2 (08:55→20:42)
[2019-11-27] MEDS: LEVOFLOXACIN 750 MG TABLET PO SCH (10:54)
[2019-11-27] MEDS: IRON SUCROSE COMPLEX 100 MG in SODIUM CHLORIDE 0.9% 50 ML IV SCH (10:54)
[2019-11-27 12:00] VITALS: BP 160/82
[2019-11-27] MEDS ORDERED: LISINOPRIL 20 MG TABLET PO SCH (13:30)
[2019-11-27 14:53] LABS: MAGNESIUM 2.3 mg/dL (1.80-2.40); POTASSIUM 3.2 mmol/L (3.5-5.1)
[2019-11-27 16:00] VITALS: BP 161/80
[2019-11-27] MEDS: CEFTRIAXONE SODIUM 2 GM VIAL IVP SCH (16:38)
[2019-11-27] MEDS ORDERED: LISINOPRIL 20 MG TABLET ONE (16:41)
[2019-11-27] MEDS: POTASSIUM CHLORIDE 20 MEQ ERTAB PO PRN ×3 (16:54→22:55)
[2019-11-27 19:40] VITALS: BP 149/80
[2019-11-27] MEDS: ATORVASTATIN CALCIUM 40 MG TABLET PO SCH (20:42)
[2019-11-27] MEDS: ACETAMINOPHEN-CODEINE 300/30MG TAB PO PRN (20:44)
[2019-11-27 23:37] VITALS: BP 142/68
[2019-11-28 03:42] VITALS: BP 146/73
[2019-11-28] MEDS: INSULIN HUMULIN R 100 UNIT/ML 3ML SQ SCH ×4 (05:56→21:00)
[2019-11-28 06:00] LABS: BASOPHILS % (AUTO) 0.5 % (0.0-5.0); EOSINOPHILS % (AUTO) 2.4 % (0.0-8.0); HEMATOCRIT 24.4 % (42-54); LYMPHOCYTES % (AUTO) 14.6 % (21.0-51.0); MEAN CORPUSCULAR HEMOGLOBIN 26.7 pg (27.0-33.0); MEAN CORPUSCULAR VOLUME 78.5 fL (79-99); MONOCYTES % (AUTO) 9.2 % (3.0-13.0); NEUTROPHILS % (AUTO) 63.9 % (40.0-77.0); PLATELET COUNT (AUTO) 490 K/uL (130-400); RED BLOOD CELL COUNT(AUTO) 3.11 MIL/uL (4.50-6.20); RED CELL DISTRIBUTION WIDTH 13.2 % (11.0-15.5); WHITE BLOOD COUNT (AUTO) 14.8 K/uL (4.8-10.8)
[2019-11-28 06:16] LABS: CREATININE 1.1 mg/dL (0.5-1.5); MAGNESIUM 1.8 mg/dL (1.80-2.40)
[2019-11-28] MEDS: MAGNESIUM 2GM PREMIX 50ML 50 ML IV PRN (07:15)
[2019-11-28 07:57] VITALS: BP 163/82
[2019-11-28] MEDS: LISINOPRIL 40 MG TABLET PO SCH (09:11)
[2019-11-28] MEDS: ASPIRIN 81MG TAB.CHEW PO SCH (09:11)
[2019-11-28] MEDS: FAMOTIDINE/PF 20 MG/2 ML VIAL IV SCH ×2 (09:11→21:16)
[2019-11-28] MEDS: AMLODIPINE BESYLATE 5 MG TAB PO SCH (09:11)
[2019-11-28] MEDS: HYDRALAZINE HCL 25 MG TABLET PO SCH ×2 (09:11→21:16)
[2019-11-28] MEDS: IRON SUCROSE COMPLEX 100 MG in SODIUM CHLORIDE 0.9% 50 ML IV SCH (09:12)
[2019-11-28 12:00] VITALS: BP 144/74
[2019-11-28] MEDS: CEFTRIAXONE SODIUM 2 GM VIAL IVP SCH (15:46)
[2019-11-28] MEDS: LACTATED RINGERS 1000ML 1,000 ML IV SCH ×2 (15:47→22:41)
[2019-11-28 16:00] VITALS: BP 132/72
[2019-11-28 20:00] VITALS: BP 132/72
[2019-11-28] MEDS: ATORVASTATIN CALCIUM 40 MG TABLET PO SCH (21:16)
[2019-11-28] MEDS: ACETAMINOPHEN-CODEINE 300/30MG TAB PO PRN (21:17)
[2019-11-29] VITALS (7 sets, daily range): BP systolic 124–161; BP diastolic 66–81
[2019-11-29] MEDS: INSULIN HUMULIN R 100 UNIT/ML 3ML SQ SCH ×4 (05:54→20:26)
[2019-11-29] MEDS: LISINOPRIL 40 MG TABLET PO SCH (08:19)
[2019-11-29] MEDS: FAMOTIDINE/PF 20 MG/2 ML VIAL IV SCH ×2 (08:19→20:24)
[2019-11-29] MEDS: ASPIRIN 81MG TAB.CHEW PO SCH (08:19)
[2019-11-29] MEDS: IRON SUCROSE COMPLEX 100 MG in SODIUM CHLORIDE 0.9% 50 ML IV SCH (08:19)
[2019-11-29] MEDS: AMLODIPINE BESYLATE 5 MG TAB PO SCH (08:19)
[2019-11-29] MEDS: HYDRALAZINE HCL 25 MG TABLET PO SCH ×2 (08:23→20:24)
[2019-11-29] MEDS: LACTATED RINGERS 1000ML 1,000 ML IV SCH (11:10)
[2019-11-29] MEDS: CEFTRIAXONE SODIUM 2 GM VIAL IVP SCH (13:37)
[2019-11-29] MEDS ORDERED: INSULIN HUMULIN 70/30 100 UNIT/ML 3ML SQ SCH (16:30)
[2019-11-29] MEDS: METFORMIN HCL 500 MG TABLET PO SCH (16:33)
[2019-11-29] MEDS: ATORVASTATIN CALCIUM 40 MG TABLET PO SCH (20:23)
[2019-11-29] MEDS: HYDROMORPHONE 1 MG/1 ML AMP IVP PRN (20:35)
[2019-11-30] MEDS: HYDROMORPHONE 1 MG/1 ML AMP IVP PRN ×3 (00:09→04:25)
[2019-11-30] MEDS: MORPHINE SULFATE 4 MG/1ML SYG IVP PRN ×2 (00:54→03:14)
[2019-11-30] MEDS: LACTATED RINGERS 1000ML 1,000 ML IV SCH (03:01)
[2019-11-30 03:32] VITALS: BP 120/62
[2019-11-30] MEDS: INSULIN HUMULIN R 100 UNIT/ML 3ML SQ SCH ×2 (05:49→11:38)
[2019-11-30] MEDS ORDERED: INSULIN HUMULIN 70/30 100 UNIT/ML 3ML SQ SCH (07:30)
[2019-11-30] MEDS: FAMOTIDINE/PF 20 MG/2 ML VIAL IV SCH (08:08)
[2019-11-30] MEDS: AMLODIPINE BESYLATE 5 MG TAB PO SCH (08:08)
[2019-11-30] MEDS: METFORMIN HCL 500 MG TABLET PO SCH (08:08)
[2019-11-30] MEDS: LISINOPRIL 40 MG TABLET PO SCH (08:08)
[2019-11-30] MEDS: HYDRALAZINE HCL 25 MG TABLET PO SCH (08:08)
[2019-11-30] MEDS: ASPIRIN 81MG TAB.CHEW PO SCH (08:09)
[2019-11-30] MEDS: IRON SUCROSE COMPLEX 100 MG in SODIUM CHLORIDE 0.9% 50 ML IV SCH (08:10)
[2019-11-30 08:31] VITALS: BP 151/73
[2019-11-30 11:02] VITALS: BP 134/70
[2019-11-30] MEDS: CEFTRIAXONE SODIUM 2 GM VIAL IVP SCH (13:39)
--- NOTE | 2019-11-30 14:19 | NUR ---
DISCHARGE TO [facility] D/C PLANNING COMPLETE COVID FORM AND MED REC FAXED TO [facility] FAXED, MOT COMPLETED, ADVISED PSYCHIATRY RESIDENT TO SIGN- PMD AND AURELIANO GERMAIN, ADVISED PRIMARY RN TO EXPECT DC ORDER Addendum: 11/30/19 at 1421 by FORREST SHIELDS RN CM Amended: Links added.
--- NOTE | 2019-11-30 15:30 | NUR ---
INSTRUCTIONS DISCHARGE INSTRUCTIONS GIVEN TO PATIENT USING TEACH BACK. REPORT HAS BEEN CALLED TO [facility], REPORT WAS GIVEN TO YANY LIZ. DR. ERAZO WILL F/U WITH PATIENT AT [facility]. ALL INFORMATION AND MD INSTRUCTIONS PRINTED AND PLACED IN DISCHARGE PACKET. IV WILL BE LEFT IN PLACE FOR IV ANTIBIOTICS. DRESSING TO LEFT AKA STUMP WAS CHANGED. NO QUESTIONS OR CONCERNS VOICED. PENDING EMS FOR TRANSPORT.
--- NOTE | 2019-11-30 16:21 | NUR ---
[facility]S TO [facility] WILL BE PAID FOR BY [facility] PER [facility]A /FRANK OLIVEIRA Addendum: 11/30/19 at 1622 by FORREST SHIELDS RN CM Amended: Links added.
--- NOTE | 2019-11-30 18:10 | NUR ---
EMS CONTACTED [facility]/EMS, WAS TOLD THERE WAS ONE PATIENT AHEAD OF JAYCOB JONES . PATIENT INFORMED OF EMS TRANSPORTATION STATUS
== END 2019-11-30 19:55 | DRG 853 ==
LOC: EDH 20:40 → EDHIP 23:10 → 3CH 11-24 00:18
PROVIDERS: ADMIT Internal Medicine; ATTEND Internal Medicine
PROC: 0Y6D0Z2 Detachment at Left Upper Leg, Mid, Open Approach (ICD-10-PCS; principal; 2019-11-25 08:20)
DX: A41.9 Sepsis, unspecified organism (principal); A48.0 Gas gangrene; M72.6 Necrotizing fasciitis; L03.116 Cellulitis of left lower limb; N17.9 Acute kidney failure, unspecified; E87.1 Hypo-osmolality and hyponatremia; E44.0 Moderate protein-calorie malnutrition; E11.52 Type 2 diabetes mellitus with diabetic peripheral angiopathy with gangrene; E87.6 Hypokalemia; E11.621 Type 2 diabetes mellitus with foot ulcer; L97.529 Non-pressure chronic ulcer of other part of left foot with unspecified severity; Z68.26 Body mass index [BMI] 26.0-26.9, adult; B95.5 Unspecified streptococcus as the cause of diseases classified elsewhere; B96.89 Other specified bacterial agents as the cause of diseases classified elsewhere; E11.22 Type 2 diabetes mellitus with diabetic chronic kidney disease; E11.51 Type 2 diabetes mellitus with diabetic peripheral angiopathy without gangrene; E78.00 Pure hypercholesterolemia, unspecified; E78.5 Hyperlipidemia, unspecified; E86.1 Hypovolemia; F02.80 Dementia in other diseases classified elsewhere, unspecified severity, without behavioral disturbance, psychotic disturbance, mood disturbance, and anxiety; G30.9 Alzheimer's disease, unspecified; I12.9 Hypertensive chronic kidney disease with stage 1 through stage 4 chronic kidney disease, or unspecified chronic kidney disease; I25.10 Atherosclerotic heart disease of native coronary artery without angina pectoris; J44.9 Chronic obstructive pulmonary disease, unspecified; N18.3 Chronic kidney disease, stage 3 (moderate); R65.20 Severe sepsis without septic shock; Z89.519 Acquired absence of unspecified leg below knee; I99.9 Unspecified disorder of circulatory system; D64.9 Anemia, unspecified
CPT/HCPCS: 36415; 71045; 73630; 73700; 73718; 76770; 80048; 80053; 80061; 80202; 80305; 81001; 82570; 82947; 82948; 83036; 83540; 83550; 83605; 83735; 83935; 84100; 84132; 84145; 84156; 84484; 85025; 85027; 85610; 85730; 86850; 86900; 86901; 87040; 87070; 87076; 87077; 87186; 87324; 93005; 93306; 93356; 93926; 97039; 99291; G0378; J0360; J0692; J0696; J1170; J1756; J1815; J1885; J2250; J2270; J2543; J2704; J3370; J3475; J3490; J7030; J7050; J7120